=== PATIENT | male | born 1940 | race Caucasian/White ===

== ENCOUNTER 2018-12-20 10:20 | Outpatient (CLI) | payer MEDICARE ==
--- NOTE | 2018-12-20 11:22 | MRI ---
MRI LUMBAR SPINE NONCONTRAST: HISTORY: Lumbar stenosis with neurogenic claudication. Low back pain with tingling and numbness running down b oth legs, times severall years. COMPARISON: 05/06/2013. FINDINGS: Appropriate T1 marrow signal intensity of the lumbar vertebrae. Lumbar spine vertebral body height is maintained. No fracture. No significant STIR hyperintensity to suggest vertebral body edema or ligamentous injury. Appropriate signal intensity of the paraspinal muscles. Interval enlargement of a 4.8 cm exophytic T2 hyperintensity emanating from the medial right renal co rtex which may represent a cyst. Conus medullaris terminates at the inferior aspect of L1. Spondylolisthesis: L1-L2: 2.8 mm retrolisthesis. L2-L3: 3.7 mm of retrolisthesis. L4-L5: ___ mm of retrolisthesis. L5-S1: 6.2 mm of anterolisthesis. There does appear to be associated bilateral spondylolysis at L5. T12-L1:Mild loss of disc space height. No significant central canal stenosis. Mild bilateral foramina l narrowing due to disc material. L1-L2:Severe loss of disc space height. Broad-based disc-osteophyte complex, ligament flavum thickeni ng and facet hypertrophy result in moderate to severe central canal stenosis. Severe bilateral neural foraminal narrowing. L2-L3:Desiccation with severe loss of disc space height. Broad-based disc bulge, ligament flavum thic kening and facet hypertrophy result in moderate central canal stenosis. Moderate to severe bilateral neural foraminal narrowing. L3-L4:Desiccation with moderate to severe loss of disc space height. No obvious disc bulge, ligamentu m flavum thickening (left greater than right) result in moderate central canal stenosis. Narrowing of the left subarticular zone with obscuration traversing left L4 nerve root. Small amount of fluid i n the right facet joint. There is significant left facet hypertrophy. Moderate right foraminal narrowing. Moderate to severe left neural foraminal narrowing. L4-L5:Desiccation with severe loss of disc space height. Broad-based disc bulge, ligament flavum thic kening and facet hypertrophy result in moderate to severe central canal stenosis. Severe bilateral neural foraminal narrowing. L5-S1:Desiccation with moderate loss of disc space height. Broad-based disc bulge without significant stenosis of the thecal sac. Moderate to severe right neural foraminal narrowing. Mild left foraminal narrowing. IMPRESSION: Multilevel degenerative changes lumbar spine as detailed above. Transcribed Date/Time: 12/20/2018 12:12 PM
== END 2018-12-20 10:21 | disposition home or self-care (01) ==
LOC: MRI 10:20
PROVIDERS: ATTEND Anesthesiology Pain Medicine
DX: M48.062 Spinal stenosis, lumbar region with neurogenic claudication (principal); M47.816 Spondylosis without myelopathy or radiculopathy, lumbar region
CPT/HCPCS: 72148

== ENCOUNTER → 2019-04-08 | Day surgery (SDC) | payer MEDICARE ==
[2019-04-07 09:24] VITALS: BMI 36.1
[~2019-04-08] MED LIST: Fentanyl 100 MCG/2 ML VIAL ONE; Heparin 10,000 UNITS/1 ML VIAL ONE; Lidocaine 1% (PF) 30 ML VIAL ONE; Midazolam HCl 2 mg/2 ml Vial ONE; Nitroglycerin 100MG/250ML BOT 250 ML ONE; Verapamil 5 MG/2 ML VIAL ONE
[2019-04-08 08:49] LABS: ALT (SGPT) 10 U/L (8-55); AST (SGOT) 11 U/L (5-34); Albumin 3.9 g/dL (3.4-4.8); Alkaline Phosphatase 66 U/L (40-110); Anion Gap 15 mmol/L (10-20); BUN (Urea Nitrogen) 26 mg/dL (8.4-25.7); Bilirubin, Total 0.6 mg/dL (0.2-1.2); Calc. Creatinine Clearance 47 mL/min (70-130); Calcium 9.4 mg/dL (7.8-10.44); Carbon Dioxide 23 mmol/L (23-31); Chloride 107 mmol/L (98-107); Estimated GFR-MDRD 33; Globulin 2.6 g/dL (2.4-3.5); Glucose 155 mg/dL (83-110); Potassium 3.6 mmol/L (3.5-5.1); Protein, Total 6.5 g/dL (5.8-8.1); Sodium 141 mmol/L (136-145)
--- NOTE | 2019-04-11 21:55 | CON ---
DATE OF CONSULTATION: HISTORY OF PRESENT ILLNESS: This is a 78-year-old gentleman, who is being evaluated for dyspnea on exertion. The patient actually is not that active and states that his recliner will miss him greatly while he is hospitalized for his surgery. He was evaluated by Dr. Coello and was found to have an ejection fraction of 35% to 40% with a stress test showing apical scar with large david-infarct ischemia and apical hypokinesis. Cardiovascular risk factors include diabetes mellitus, dyslipidemia, hypertension, and a remote smoking history. PAST MEDICAL HISTORY: Otherwise includes abdominal wall hernia, arthritis, hearing loss, and dyslipidemia. PAST SURGICAL HISTORY: Includes an appendectomy, hernia repair, left knee replacement, and right knee partial replacement. ALLERGIES: NONE KNOWN. MEDICATIONS: Include, 1. Atorvastatin 20. 2. Janumet b.i.d. 3. Etodolac 400 , which I have told him to stop due to elevated creatinine. 4. Zinc 50 mg a day. 5. Aspirin 81 a day. 6. Avodart 0.5 a day. 7. Gabapentin 300 twice a day. 8. Tramadol as needed for pain. 9. Glimepiride 4 mg once a day. 10. Amlodipine 10 mg once a day. 11. Eye drops. PHYSICAL EXAMINATION: GENERAL: He is alert, cooperative gentleman, overweight at height 5 feet 8 inches, weight 238, BMI 36. NECK: No carotid bruits. LUNGS: Clear to auscultation. CARDIAC: Regular rate and rhythm. No murmurs. ABDOMEN: Hernia palpable in the midline with no adjacent scar. EXTREMITIES: He has no peripheral edema, but does have some brownish pigmentation of his lower legs with absent pedal pulse in the feet. Cardiac catheterization shows an occluded right that fills from left-sided collaterals with no apparent target for grafting. The LAD is occluded after the diagonal and then fills from [id number] collaterals. The circumflex consists of a ramus with about a 60% stenosis. Another small high diagonal that is completely occluded and the distal circumflex giving rise to a small distal OM with about 60% stenosis with potential targets being the LAD, ramus, and distal circ. Plan at this time is to stop his Etodolac. Recheck his renal function and laboratory next week for probable CABG. An informed consent has been obtained. Job ID: [id number]
== END ==
LOC: CCL 06:57
PROVIDERS: ATTEND Internal Medicine Cardiovascular Disease
PROC: 4A023N7 Measurement of Cardiac Sampling and Pressure, Left Heart, Percutaneous Approach (ICD-10-PCS; principal; 2019-04-08)
PROC: B2111ZZ Fluoroscopy of Multiple Coronary Arteries using Low Osmolar Contrast (ICD-10-PCS; 2019-04-08)
DX: I25.10 Atherosclerotic heart disease of native coronary artery without angina pectoris (principal); I25.82 Chronic total occlusion of coronary artery; E78.00 Pure hypercholesterolemia, unspecified; E78.5 Hyperlipidemia, unspecified; I13.0 Hypertensive heart and chronic kidney disease with heart failure and stage 1 through stage 4 chronic kidney disease, or unspecified chronic kidney disease; E11.22 Type 2 diabetes mellitus with diabetic chronic kidney disease; N18.3 Chronic kidney disease, stage 3 (moderate); I50.9 Heart failure, unspecified; M19.90 Unspecified osteoarthritis, unspecified site; Z87.891 Personal history of nicotine dependence; Z79.84 Long term (current) use of oral hypoglycemic drugs; Z79.82 Long term (current) use of aspirin; Z79.899 Other long term (current) drug therapy
CPT/HCPCS: 80053; C1769; J1644; J2001; J2250; J3010

== ENCOUNTER 2019-04-13 11:20 | Inpatient (IN) | payer MEDICARE ==
[2019-04-14] MEDS ORDERED: Albumin 5% 500 ML ONE (06:17)
[2019-04-14] MEDS ORDERED: Heparin 10,000 UNITS/1 ML VIAL 30,000 UNITS in Sodium Chloride 0.9% 1,000 ML FS SCH (06:30)
[2019-04-14] MEDS ORDERED: Midazolam HCl 5 mg/5 ml Vial ONE (07:09)
[2019-04-14] MEDS ORDERED: Fentanyl 250 MCG/5 ML VIAL ONE ×2 (07:09)
[2019-04-14 07:17] LABS: Anion Gap 13 mmol/L (10-20); BUN (Urea Nitrogen) 27 mg/dL (8.4-25.7); Calc. Creatinine Clearance 46 mL/min (70-130); Calcium 10.1 mg/dL (7.8-10.44); Carbon Dioxide 25 mmol/L (23-31); Chloride 103 mmol/L (98-107); Estimated GFR-MDRD 33; Glucose 155 mg/dL (83-110); Potassium 3.8 mmol/L (3.5-5.1); Sodium 137 mmol/L (136-145)
[2019-04-14] MEDS ORDERED: Insulin Regular 300 UNITS/3 ML VIAL ONE (10:11)
[2019-04-14] MEDS ORDERED: Norepinephrine 4 MG/4 ML VIAL ONE (12:03)
[2019-04-14] MEDS ORDERED: Heparin 5,000 UNITS/ML VIAL ONE (12:03)
[2019-04-14] MEDS ORDERED: Cardioplegic Soln 1,000 ML BAG ONE (12:03)
[2019-04-14] MEDS ORDERED: Lidocaine 2% PF 5 ML VIAL ONE (12:03)
[2019-04-14] MEDS ORDERED: Vecuronium 10 MG VIAL ONE (12:03)
[2019-04-14] MEDS ORDERED: Aminocaproic Acid 5 GM/20 ML VIAL ONE (12:03)
[2019-04-14] MEDS ORDERED: Sodium Bicarb 50 MEQ/50 ML Abboject 8.4% SYRINGE ONE (12:03)
[2019-04-14] MEDS ORDERED: DOPamine 400 MG/10 ML VIAL ONE (12:03)
[2019-04-14] MEDS ORDERED: Heparin 30,000 units/30 ml VIAL ONE (12:03)
[2019-04-14] MEDS ORDERED: Thrombin 5000 UNITS/5 ML VIAL ONE (12:03)
[2019-04-14] MEDS ORDERED: Potassium Chloride 60 MEQ/30 ML VIAL ONE (12:03)
[2019-04-14] MEDS ORDERED: Calcium Chloride 1 GM/10 ML Abboject SYRINGE ONE (12:03)
[2019-04-14] MEDS ORDERED: PROPOFOL 200 MG/20 ML VIAL ONE (12:03)
[2019-04-14] MEDS ORDERED: Papaverine 60 MG/2 ML VIAL ONE (12:03)
[2019-04-14] MEDS ORDERED: Rocuronium Bromide 10 MG/ML (10ML VIAL) ONE (12:03)
[2019-04-14] MEDS ORDERED: Magnesium Sulfate 1 GM/2 ML VIAL ONE (12:03)
[2019-04-14] MEDS ORDERED: PHENYLEPHRINE-NS 100 MCG/ML 10 ML SYRINGE ONE (12:03)
[2019-04-14] MEDS ORDERED: Protamine Sulfate 250 MG/25 ML VIAL ONE (12:03)
[2019-04-14] MEDS ORDERED: Lidocaine 1% PF 5 ML VIAL ONE (12:03)
[2019-04-14] MEDS ORDERED: Nitroglycerin 50 MG/250 ML BOT 250 ML IVPB PRN (12:52)
[2019-04-14] MEDS ORDERED: DOPamine 400 MG/D5W 250 ML 250 ML IVPB PRN (12:52)
[2019-04-14] MEDS ORDERED: Post-Op Insulin Drip Protocol IVPB ONE (12:52)
[2019-04-14] MEDS ORDERED: Bisacodyl 5 MG TAB PO PRN (12:52)
[2019-04-14] MEDS ORDERED: Bisacodyl 10 MG SUPP PR PRN (12:52)
[2019-04-14] MEDS ORDERED: hydrALAZINE 20 MG/ML VIAL SLOW IVP PRN (12:52)
[2019-04-14] MEDS ORDERED: Acetaminophen 325 MG TAB PO PRN (12:52)
[2019-04-14] MEDS ORDERED: Mag-Al 1200 mg/1200 mg/30 ML UDCUP PO PRN (12:52)
[2019-04-14] MEDS ORDERED: Guaifenesin DM 100-10/5 ML UDCUP PO PRN (12:52)
[2019-04-14] MEDS ORDERED: Hetastarch 6% 500 ML 500 ML IVPB PRN (12:52)
[2019-04-14] MEDS ORDERED: niCARdipine 25 MG in Sodium Chloride 0.9% 250 ML 240 ML IVPB PRN (12:52)
[2019-04-14] MEDS ORDERED: Norepinephrine 8 MG/0.9% NS 250 ML IVPB PRN (12:52)
[2019-04-14] MEDS ORDERED: Ondansetron PF 4 MG/2 ML Vial IVP PRN (12:52)
[2019-04-14] MEDS ORDERED: Magnesium 2 GM/50 ML 2 GM in Premix Bag 1 BAG IVPB SCH (13:00)
[2019-04-14] MEDS ORDERED: Dextrose 50% Abboject 50 ML SYRINGE SLOW IVP PRN (13:02)
[2019-04-14] MEDS ORDERED: Dextrose 5% in Water 1,000 ML IV PRN (13:02)
[2019-04-14] MEDS ORDERED: HUMULIN R 100 UNITS in Sodium Chloride 0.9% 100 ML IVPB SCH (13:02)
[2019-04-14 13:19] LABS: Hemoglobin 13.2 g/dL (14.0-18.0); Mean Corpuscular HGB CONC 33.8 g/dL (32.0-36.0); Mean Corpuscular Hemoglobin 30.4 pg (27.0-31.0); Platelet Count 225 thou/uL (130-400); RBC Distribution Width 13.1 % (11.5-14.5); Red Blood Cell (RBC) Count 4.35 mill/uL (4.70-6.10); White Blood Cell (WBC) Count 23.7 thou/uL (4.8-10.8)
[2019-04-14 13:22] LABS: Actual Bicarbonate (HCO3a) 17.6 mEq/L (22-28); Base Excess (BEa) -8.9 mEq/L (-2.0 to +3.0); CO2 Tension 40.3 mmHg (35.0-45.0); Calcium, Ionized 1.17 mmol/L (1.12-1.30); Hemoglobin (Hb) 13.5 g/dL (14.0-18.0); O2 Tension (PaO2) 75.1 mmHg (> 70.0); Potassium - ABG Lab 3.96 mmol/L (3.70-5.30); pH, Arterial 7.26 (7.35-7.45)
[2019-04-14 13:24] LABS: ALV-art Gradient 302.325 (0-20); Puncture Site LINE
[2019-04-14 13:27] LABS: PTT 30.5 SEC (22.9-36.1)
[2019-04-14] MEDS: Fentanyl 100 MCG/2 ML VIAL SLOW IVP PRN ×4 (13:27→22:37)
[2019-04-14 13:28] LABS: INR-International Normal Ratio 1.2; Prothrombin Time 14.9 SEC (12.0-14.7)
[2019-04-14] MEDS: CEFAZOLIN 2 GM in Premix Bag 1 BAG IVPB SCH ×2 (13:33→21:09)
[2019-04-14] MEDS: Lactated Ringer's 1,000 ML IV SCH ×2 (13:33→23:27)
[2019-04-14 13:36] LABS: Band 9 % (5-11); Lymphocytes 7 % (21-51); MDiff Complete? YES; Monocytes 8 % (0-10); Myelocyte 2 % (0-0); Neutrophil 74 % (42-75); Ovalocytes SLIGHT = 2-5 cells (100X) (0-1/hpf); Platelet Morphology Comment Appears Adequate; Polychromasia SLIGHT = 2-3 cells (100X) (0-2/hpf)
--- NOTE | 2019-04-14 13:43 | RAD ---
Exam: Chest one view portable: HISTORY: Postop open heart FINDINGS: Endotracheal tube and right subclavian catheters are in place. Chest tubes are in place. Probable sharmaine y tiny left-sided pneumothorax or pneumomediastinum or pneumopericardium. Patchy parenchymal changes in both lung bases. Overall poor inspiratory effort. IMPRESSION: Patchy bibasilar parenchymal changes evidence for subsegmental atelectasis. Bilateral vascular congestion. Probable very tiny amount of left-sided pleural air or pneumomediastinum or pneumopericardium adjacen t to the left heart border region.
[2019-04-14 13:44] VITALS: BMI 37.8
[2019-04-14 13:55] LABS: Anion Gap 14 mmol/L (10-20); BUN (Urea Nitrogen) 27 mg/dL (8.4-25.7); Calc. Creatinine Clearance 48 mL/min (70-130); Calcium 8.4 mg/dL (7.8-10.44); Carbon Dioxide 22 mmol/L (23-31); Chloride 107 mmol/L (98-107); Estimated GFR-MDRD 33; Glucose 198 mg/dL (83-110); Sodium 139 mmol/L (136-145)
[2019-04-14] MEDS: Potassium Chloride 10 MEQ in Premix Bag 1 BAG IVPB PRN (14:50)
--- NOTE | 2019-04-14 15:01 | OP ---
DATE OF PROCEDURE: 04/14/2019 PREOPERATIVE DIAGNOSES: 1. Coronary artery disease. 2. Left ventricular hypertrophy. PROCEDURE PERFORMED: Coronary artery bypass graft x4: Left internal mammary artery good quality to a good quality left anterior descending; saphenous vein good quality to a 2 mm ramus; a 1.5 to 2 mm right coronary artery distal to the PDA; saphenous vein to a 1.5 mm diagonal. The distal circumflex was too small where it could be reached to graft. Due to severe left ventricular hypertrophy , the limitation of the lateral wall was marginal. DESCRIPTION OF PROCEDURE: After adequate anesthesia had been obtained, Dr. Kramer originally did an endovascular vein harvest on the left greater saphenous vein; however, this was not a very good quality vein after being harvested and he then did an open harvest of the right greater saphenous vein. Simultaneously, I performed a median sternotomy, harvesting the left internal mammary artery. After the leg veins had been harvested, the patient was heparinized. The mammary divided distally and passed posterior to a small remnant of thymus gland. Aorta and right atrium were cannulated and cardiopulmonary bypass begun. The aorta was cross clamped, and after a liter of cold blood cardioplegia through the aortic root, the distal anastomosis was completed. Cross-clamp was removed and the partial occluding clamp placed in the ramus and right vein grafts were placed on the aortic root, the partial occluding clamp removed, and the saphenous vein from the diagonal anastomosed to the side of the ramus vein graft about 2 cm from the aortic root. The patient was then weaned from cardiopulmonary bypass. Cannula was removed and protamine given systemically. The vein pledgeted 4-0 Prolene was used to secure the aortic cannulation site. Following completion of this, mediastinal and left pleural drains were placed and the sternum was then reapproximated with #7 interrupted wire using vancomycin paste on the sternal edges, platelet-rich blood, and platelet-poor plasma in this bone and subcutaneous tissue. The patient's subcutaneous tissue and skin were then closed in layers and he is to be taken to the ICU in guarded condition. Job ID: [id number]
[2019-04-14 17:40] LABS: Actual Bicarbonate (HCO3a) 19.5 mEq/L (22-28); Base Excess (BEa) -5.8 mEq/L (-2.0 to +3.0); CO2 Tension 37.7 mmHg (35.0-45.0); Calcium, Ionized 1.17 mmol/L (1.12-1.30); Carboxyhemoglobin (COHb) 1.2 gm% (0.0-3.0); Hemoglobin (Hb) 13.4 g/dL (14.0-18.0); O2 Tension (PaO2) 61.8 mmHg (> 70.0); Potassium - ABG Lab 3.92 mmol/L (3.70-5.30); pH, Arterial 7.33 (7.35-7.45)
[2019-04-14 17:42] LABS: Puncture Site LINE
[2019-04-14 17:43] LABS: ALV-art Gradient 104.975 (0-20)
[2019-04-14] MEDS ORDERED: Sodium Bicarb 50 MEQ/50 ML VIAL ONE (17:47)
[2019-04-14] MEDS ORDERED: Sodium Bicarb 50 MEQ/50 ML VIAL IV SCH (18:00)
--- NOTE | 2019-04-14 18:12 | CON ---
DATE OF CONSULTATION: 04/14/2019 REASON FOR CONSULTATION: Status post CABG. HISTORY OF PRESENT ILLNESS: Mr. Schwarz is a pleasant 78-year-old white gentleman, very well known to myself, who comes to the hospital for a planned CABG. He had this performed earlier today by Dr. Cia. He had coronary artery bypass grafting x4 with a BAGLEY to a good quality LAD, a saphenous vein graft to a good quality 2 mm ramus, a vein graft to a 2 mm right PDA, and a vein graft to a 1.5 mm diagonal. The circumflex was apparently too small and it could not be reached with the graft. On my evaluation, he is still sedated and intubated. I saw him earlier today, just as soon as he came out of the OR. He is still needing pressor support, but minimal. Hopefully, this will get weaned off once anesthesia wears off. PAST MEDICAL HISTORY: 1. Coronary artery disease, recently diagnosed with an abnormal stress and then eventually heart catheterization showing multivessel disease. 2. Type 2 diabetes. 3. Hypertension. 4. Hyperlipidemia. 5. Hearing loss. 6. Osteoarthritis. 7. Abdominal hernia. PAST SURGICAL HISTORY: 1. Colonoscopy. 2. Appendectomy. 3. Left knee replacement. 4. Hernia repair. 5. Right knee partial replacement. 6. CABG x4 as above. FAMILY HISTORY: Noncontributory. REVIEW OF SYSTEMS: Unobtainable as the patient is sedated and intubated. OUTPATIENT MEDICATIONS: 1. Atorvastatin 20 mg at bedtime. 2. Janumet mg twice a day. 3. Etodolac. 4. Zinc. 5. Aspirin 81 a day. 6. Avodart 0.5 mg daily. 7. Gabapentin 300 mg a day. 8. Tramadol p.r.n. 9. Levaquin. 10. Xyzal Allergy once a day. 11. Prevagen 10 mg. 12. Zolpidem p.r.n. 13. Glimepiride 4 mg daily. 14. Amlodipine 10 mg a day. 15. Latanoprost ophthalmic solution. ALLERGIES: NO KNOWN DRUG ALLERGIES. SOCIAL HISTORY: No alcohol, tobacco, or drugs. PHYSICAL EXAMINATION: VITAL SIGNS: Temperature 98.4, pulse 68, respiratory rate 18, saturation 98% on 40% FiO2, and blood pressure 126/61. GENERAL: Sedated and intubated. NECK: Supple. LUNGS: Have rhonchi anteriorly. CARDIOVASCULAR: S1 and S2. 3-component rub. ABDOMEN: Soft. Positive bowel sounds. EXTREMITIES: Trace edema. SKIN: Warm and dry. LABORATORY DATA: Laboratory work was reviewed. White count of 23 postoperatively, hemoglobin 13, hematocrit 39, and platelet count of 225. Coags were unremarkable. ABG was reviewed. Chemistries were reviewed. Creatinine 1.98, this is close to his baseline; yesterday was 1.99 before surgery; and 1.96 on the . ASSESSMENT: 1. Multivessel coronary artery disease. 2. Status post coronary artery bypass grafting x4. 3. Hypertension. 4. Hyperlipidemia. PLAN: 1. Continue supportive care for now. 2. Aspirin and statin for life. 3. We will start beta manuel and KIMO inhibitor once blood pressure allows. Thank you for letting us to participate in the care of your patient. We will follow. TIME SPENT: A 30 minutes of critical care time. Job ID: [id number]
[2019-04-14 19:33] LABS: Hemoglobin 13.2 g/dL (14.0-18.0)
[2019-04-14] MEDS: Atorvastatin Calcium 20 MG TAB PO SCH (20:16)
[2019-04-14] MEDS ORDERED: Famotidine/PF 20 mg/2ml Vial SLOW IVP SCH (21:00)
[2019-04-14] MEDS: Latanoprost 0.005% Ophth Soln 2.5 ml Bottle EA EYE SCH (22:40)
[2019-04-15] MEDS: Fentanyl 100 MCG/2 ML VIAL SLOW IVP PRN ×4 (02:11→19:43)
[2019-04-15 04:55] LABS: #Lymphocytes 0.5 thou/uL (1.20-3.40); #Monocytes 1.6 thou/uL (0.11-0.59); #Neutrophils 13.9 thou/uL (1.40-6.50); %Basophils 0.1 % (0.0-1.0); %Eosinophils 0.1 % (0.0-10.0); %Lymphocytes 3.3 % (21.0-51.0); %Monocytes 10.2 % (0.0-10.0); %Neutrophils 86.4 % (42.0-75.0); Mean Corpuscular HGB CONC 31.9 g/dL (32.0-36.0); Mean Corpuscular Hemoglobin 29.1 pg (27.0-31.0); Mean Corpuscular Volume 91.2 fL (78.0-98.0); Mean Platelet Volume 8.9 fL (7.4-10.4); Platelet Count 211 thou/uL (130-400); RBC Distribution Width 13.4 % (11.5-14.5); Red Blood Cell (RBC) Count 4.12 mill/uL (4.70-6.10); White Blood Cell (WBC) Count 16.1 thou/uL (4.8-10.8)
[2019-04-15] MEDS: CEFAZOLIN 2 GM in Premix Bag 1 BAG IVPB SCH (05:08)
[2019-04-15 05:13] LABS: Anion Gap 17 mmol/L (10-20); BUN (Urea Nitrogen) 26 mg/dL (8.4-25.7); Calc. Creatinine Clearance 50 mL/min (70-130); Calcium 8.5 mg/dL (7.8-10.44); Carbon Dioxide 19 mmol/L (23-31); Chloride 106 mmol/L (98-107); Estimated GFR-MDRD 34; Glucose 172 mg/dL (83-110); Potassium 4.2 mmol/L (3.5-5.1); Sodium 138 mmol/L (136-145)
[2019-04-15] MEDS: Aspirin 325 MG TAB PO SCH (07:53)
[2019-04-15] MEDS: Carvedilol 3.125 MG TAB PO SCH ×2 (07:53→16:23)
--- NOTE | 2019-04-15 07:53 | RAD ---
Chest one view HISTORY: Heart surgery. Follow-up. COMPARISON: 04/14/2019. FINDINGS: Cardiac silhouette is magnified and upper limits of normal in size. Pulmonary vasculature a re less engorged than on the prior study. Atelectasis at the lung bases and pleural fluid are less pronounced. Improved aeration of each lower lobe. Mediastinum is midline with postoperative changes. Endotracheal catheter no longer visible. Right sub clavian central venous catheter and left thoracostomy tube remain in place. Thin rim of gas remains along the lateral margin of the cardiac apex.. bus driver/monitor leads overlie the chest. IMPRESSION: Interval extubation. Improved aeration of the lower lobes. Minimal residual pneumomediastinum, stable.
[2019-04-15] MEDS: Lactated Ringer's 1,000 ML IV SCH (07:54)
[2019-04-15] MEDS: Dutasteride 0.5 MG CAP PO SCH (08:04)
[2019-04-15] MEDS: HYDROcodone/Acetaminophen 5/325 mg Tablet PO PRN ×3 (08:04→19:30)
--- NOTE | 2019-04-15 08:47 | PRG ---
DATE OF SERVICE: 04/15/2019 HISTORY OF PRESENT ILLNESS: This is a 78-year-old gentleman, status post CABG. ICU consultation post CABG. He denies any pain or discomfort. He is extubated earlier yesterday evening. PAST MEDICAL HISTORY: Pertinent otherwise for diabetes, hypertension, chronic pain. PREVIOUS SURGERIES: Appendix, hernia, left knee, right knee. CHRONIC MEDICATIONS: From home includes; 1. Aspirin. 2. Norvasc 10. 3. Xyzal 5. 4. Eyedrops for glaucoma. 5. Glimepiride 4 mg twice a day. 6. Avodart 0.5. 7. Calcium. 8. Atorvastatin 20. 9. Janumet one tablet twice a day. 10. Ambien. 11. Tramadol. 12. Gabapentin 300 three times a day. ALLERGIES: NONE. SOCIAL HISTORY: No alcohol abuse. No tobacco abuse. FAMILY HISTORY: Unremarkable. REVIEW OF SYSTEMS: Otherwise, 10 point negative. PHYSICAL EXAMINATION: GENERAL: ICU post CABG, awake, alert, and responsive. VITAL SIGNS: Pulse 103, saturations are 90%, respiratory rate 18, blood pressure 150/64. CHEST: Decreased breath sounds. No wheezing. CARDIAC: Normal S1, S2. No gallops. ABDOMEN: No masses. IMAGING: Chest x-ray is clear. LABORATORY DATA: Creatinine 1.91, glucose 150. White count 16,000. IMPRESSION: CABG, diabetes, morbid obesity, azotemia, hypertension. PLAN: Continue supportive care. Ordering baseline thyroid function. Continue aggressive PT. We will follow while in the ICU. Consultation note, 70 minutes, 50% direct patient care. Job ID: [id number]
[2019-04-15] MEDS ORDERED: Insulin Glargine 14 UNITS in Pre-Filled Syringe 1 EACH SC SCH (12:45)
--- NOTE | 2019-04-15 19:51 | PDOC.CPN ---
- Subjective Date: 04/15/19 Time: 19:50 Interval history: He is now extubated. Chest soreness, no other issues. - Review of Systems General: denies: fever/chills, weight/appetite/sleep changes, night sweats, fatigue Respiratory: denies: cough, congestion, shortness of breath, exercise intolerance Cardiovascular: reports: edema. denies: chest pain, palpitation, paroxysmal nocturnal dyspnea, orthopnea Gastrointestinal: denies: nausea, vomiting, diarrhea, constipation, abd pain, GI bleeding Musculoskeletal: denies: pain, tenderness, stiffness, swelling, arthritis/ arthralgias Neurological: denies: numbness, syncope, seizure, weakness - Objective Allergies/Adverse Reactions: Allergies Allergy/AdvReac Type Severity Reaction Status Date / Time No Known Allergies Allergy Verified 04/13/19 09:44 Visit Medications: Current Medications Acetaminophen (Tylenol) 650 mg PO Q6H PRN PRN Reason: Headache/Fever Or Mild Pain Hydrocodone Bitart/Acetaminophen ([place] 5/325) 1 tab PO Q4H PRN PRN Reason: Moderate Pain (4-6) Hydrocodone Bitart/Acetaminophen (Bend 5/325) 2 tab PO Q4H PRN PRN Reason: Severe Pain (7-10) Last Admin: 04/15/19 19:30 Dose: 2 tab Al Hydroxide/Mg Hydroxide (Maalox) 30 ml PO Q4H PRN PRN Reason: Indigestion Albuterol/Ipratropium (Duoneb) 3 ml NEB [id number] PRN PRN Reason: SHORTNESS OF BREATH Aspirin (Aspirin) 325 mg PO DAILY [facility] Last Admin: 04/15/19 07:53 Dose: 325 mg Atorvastatin Calcium (Lipitor) 20 mg PO [facility] Last Admin: 04/14/19 20:16 Dose: 20 mg Bisacodyl (Dulcolax) 10 mg PO Q12H PRN PRN Reason: Constipation Bisacodyl (Dulcolax) 10 mg [place] Q12H PRN PRN Reason: Constipation Carvedilol (Coreg) 3.125 mg PO BID-[facility] Last Admin: 04/15/19 16:23 Dose: 3.125 mg Dextrose/Water (Dextrose 50%) 25 gm SLOW IVP PRN PRN PRN Reason: PER HYPOGLYCEMIC PROTOCOL Dutasteride (Avodart) 0.5 mg PO DAILY [facility] Last Admin: 04/15/19 08:04 Dose: 0.5 mg Famotidine (Pepcid) 20 mg SLOW IVP QPM [place] Fentanyl (Sublimaze) 25 mcg SLOW IVP Q2H PRN PRN Reason: Moderate Pain (4-6) Stop: 04/16/19 12:46 Last Admin: 04/15/19 19:43 Dose: 25 mcg Fentanyl (Sublimaze) 50 mcg SLOW IVP Q2H PRN PRN Reason: Severe Pain (7-10) Stop: 04/16/19 12:46 Last Admin: 04/15/19 07:42 Dose: 50 mcg Glucagon (Glucagon) 1 mg SC PRN PRN PRN Reason: PER HYPOGLYCEMIC PROTOCOL Guaifenesin/Dextromethorphan (Robitussin Dm) 15 ml PO Q4H PRN PRN Reason: Cough Hydralazine HCl (Apresoline) 10 mg SLOW IVP Q6H PRN PRN Reason: To Maintain SBP< 140mmHG Last Admin: 04/14/19 21:21 Dose: 10 mg Dopamine HCl/Dextrose (Dopamine 400 Mg/D5w 250 Ml) 250 mls @ 0 mls/hr IVPB PRN PRN; Protocol PRN Reason: To maintain SBP > 90 mmHG Norepinephrine Bitartrate (Levophed) 250 mls @ 0 mls/hr IVPB PRN PRN; Protocol PRN Reason: To maintain SBP > 90 mmHG Nicardipine HCl 25 mg/ Sodium (Chloride) 250 mls @ 0 mls/hr IVPB INF PRN; Protocol PRN Reason: To Maintain SBP< 140mmHG Nitroglycerin/Dextrose (Nitroglycerin 50 Mg/250 Ml Bot) 250 mls @ 0 mls/hr IVPB PRN PRN; Protocol PRN Reason: To Maintain SBP< 140mmHG Last Admin: 04/14/19 23:17 Dose: 250 mls Insulin Human Regular 100 (units/ Sodium Chloride) 101 mls @ 0 mls/hr IVPB INF PATRIA; Protocol Last Admin: 04/14/19 23:24 Dose: 101 mls Dextrose/Water (D5w) 1,000 mls @ 0 mls/hr IV INF PRN PRN Reason: PRN HYPOGLYCEMIC PROTOCOL Potassium Chloride 10 meq/ (Device) 100 mls @ 100 mls/hr IVPB PRN PRN PRN Reason: K LEVEL </= 4.0 Last Admin: 04/14/19 14:50 Dose: 100 mls Lactated Ringer's (Lactated Ringer's) 1,000 mls @ 50 mls/hr IV .Q20H [facility] Last Admin: 04/15/19 07:54 Dose: Not Given Insulin Human Regular (Humulin R) 0 units SC Q4H PRN; Protocol PRN Reason: POST OP SLIDING SCALE Latanoprost (Xalatan 0.005% Ophth Soln) 1 drop EA EYE HS [facility] Last Admin: 04/14/19 22:40 Dose: Not Given Ondansetron HCl (Zofran) 4 mg IVP Q6H PRN PRN Reason: Nausea/Vomiting Last Admin: 04/14/19 21:39 Dose: 4 mg Vital Signs & Weight: Vital Signs Temp Pulse Ox 04/15/19 16:00 97.8 F 04/15/19 12:00 99.2 F 04/15/19 08:00 99.1 F 96 Weight 234 lb 5.622 oz - Physical Exam General: alert & oriented x3 HEENT: mucus membranes moist Neck: supple neck Cardiac: regular rate and rhythm Lungs: clear to auscultation Neuro: grossly intact Abdomen: active bowel sounds Extremities: 1+ LE edema Skin: clear Musculoskeletal: no pain - Labs Result Diagrams: 04/15/19 04:10 04/15/19 04:10 - Telemetry Sinus rhythms and dysrhythmias: sinus rhythm - Assessment/Plan Assessment/Plan: 1. Multivessel CAD. 2. S/P CABG. 3. Type 2 DM 4. HTN 5. HLP PLAN: - Aspirin and statin for life - ON BB - ACEI if BP allows in next few days. - PT once tolerated.
[2019-04-15] MEDS ORDERED: Famotidine/PF 20 mg/2ml Vial SLOW IVP SCH (21:00)
[2019-04-15] MEDS: Atorvastatin Calcium 20 MG TAB PO SCH (21:49)
[2019-04-15] MEDS: Insulin Regular 300 UNITS/3 ML VIAL SC PRN (21:49)
[2019-04-15] MEDS: Latanoprost 0.005% Ophth Soln 2.5 ml Bottle EA EYE SCH (21:49)
[2019-04-16] MEDS: HYDROcodone/Acetaminophen 5/325 mg Tablet PO PRN ×4 (00:33→17:32)
[2019-04-16] MEDS: Lactated Ringer's 1,000 ML IV SCH (01:14)
[2019-04-16] MEDS: Fentanyl 100 MCG/2 ML VIAL SLOW IVP PRN (03:16)
[2019-04-16 03:57] LABS: #Monocytes 2.1 thou/uL (0.11-0.59); #Neutrophils 12.8 thou/uL (1.40-6.50); %Basophils 0.2 % (0.0-1.0); %Eosinophils 0.2 % (0.0-10.0); %Lymphocytes 6.5 % (21.0-51.0); %Neutrophils 80.1 % (42.0-75.0); Hemoglobin 11.8 g/dL (14.0-18.0); Mean Corpuscular HGB CONC 33.2 g/dL (32.0-36.0); Mean Corpuscular Hemoglobin 30.5 pg (27.0-31.0); Mean Corpuscular Volume 91.8 fL (78.0-98.0); Mean Platelet Volume 8.6 fL (7.4-10.4); Platelet Count 199 thou/uL (130-400); RBC Distribution Width 13.4 % (11.5-14.5); Red Blood Cell (RBC) Count 3.87 mill/uL (4.70-6.10)
[2019-04-16 04:15] LABS: Anion Gap 13 mmol/L (10-20); BUN (Urea Nitrogen) 22 mg/dL (8.4-25.7); Calc. Creatinine Clearance 54 mL/min (70-130); Calcium 9.1 mg/dL (7.8-10.44); Carbon Dioxide 26 mmol/L (23-31); Chloride 105 mmol/L (98-107); Estimated GFR-MDRD 40; Glucose 147 mg/dL (83-110); Potassium 3.8 mmol/L (3.5-5.1); Sodium 140 mmol/L (136-145)
[2019-04-16] MEDS: Insulin Regular 300 UNITS/3 ML VIAL SC PRN ×4 (06:04→22:07)
--- NOTE | 2019-04-16 07:43 | RAD ---
EXAM: Portable chest PROVIDED CLINICAL HISTORY: Post open heart COMPARISON: 04/15/2019 FINDINGS: Significant interval change with respect to the prior examination is not apparent. IMPRESSION: As above.
[2019-04-16] MEDS: Dutasteride 0.5 MG CAP PO SCH (08:16)
[2019-04-16] MEDS: Aspirin 325 MG TAB PO SCH (08:16)
[2019-04-16] MEDS: Carvedilol 3.125 MG TAB PO SCH (08:16)
--- NOTE | 2019-04-16 08:41 | PRG ---
DATE OF SERVICE: 04/16/2019 SUBJECTIVE: A 78-year-old gentleman, status post CABG. This morning, he is sitting on the side of the bedside. OBJECTIVE: VITAL SIGNS: Temperature 98, pulse 100, respirations 20, blood pressure 120/85. GENERAL: Denies any pain or discomfort or shortness of breath. CHEST: No wheezing or crackles. CARDIAC: Normal S1 and S2. No gallops. ABDOMEN: No masses. LABORATORY DATA: White count 16,000. Creatinine 1.6. His chest x-ray taken today shows postop changes, bibasilar atelectatic changes. PLAN: Continue aggressive PT. Supportive Care. We will follow. Job ID: [id number]
[2019-04-16] MEDS: Potassium Chloride 10 MEQ in Premix Bag 1 BAG IVPB PRN (09:12)
[2019-04-16] MEDS: Amiodarone 450 MG in Dextrose 5% in Water 250 ML IVPB SCH ×2 (09:51→18:23)
[2019-04-16] MEDS ORDERED: Zolpidem Tartrate 5 MG TAB PO PRN (15:37)
[2019-04-16] MEDS ORDERED: Nitroglycerin 0.4 MG TAB (25 Tab Bottle) SL PRN (15:37)
[2019-04-16] MEDS ORDERED: Mag-Al 1200 mg/1200 mg/30 ML UDCUP PO PRN (15:37)
[2019-04-16] MEDS ORDERED: Artificial Tears 18 DROP/0.9 ML EA EYE PRN (15:37)
[2019-04-16] MEDS ORDERED: Dextrose 5% in Water 1,000 ML IV PRN (15:37)
[2019-04-16] MEDS ORDERED: Mineral Oil ENEMA PR PRN (15:37)
[2019-04-16] MEDS ORDERED: Bisacodyl 5 MG TAB PO PRN (15:37)
[2019-04-16] MEDS ORDERED: Bisacodyl 10 MG SUPP PR PRN (15:37)
[2019-04-16] MEDS ORDERED: Guaifenesin DM 100-10/5 ML UDCUP PO PRN (15:37)
[2019-04-16] MEDS ORDERED: Dextrose 50% Abboject 50 ML SYRINGE SLOW IVP PRN (15:37)
--- NOTE | 2019-04-16 15:56 | PDOC.CPN ---
- Subjective Date: 04/16/19 Time: 15:55 Interval history: He is doing well. He went in to afib but rate controlled. - Review of Systems General: denies: fever/chills, weight/appetite/sleep changes, night sweats, fatigue Respiratory: denies: cough, congestion, shortness of breath, exercise intolerance Cardiovascular: reports: chest pain. denies: palpitation, edema, paroxysmal nocturnal dyspnea, orthopnea Gastrointestinal: denies: nausea, vomiting, diarrhea, constipation, abd pain, GI bleeding Musculoskeletal: denies: pain, tenderness, stiffness, swelling, arthritis/ arthralgias Neurological: denies: numbness, syncope, seizure, weakness - Objective Allergies/Adverse Reactions: Allergies Allergy/AdvReac Type Severity Reaction Status Date / Time No Known Allergies Allergy Verified 04/13/19 09:44 Visit Medications: Current Medications Hydrocodone Bitart/Acetaminophen ([place] 5/325) 1 tab PO Q4H PRN PRN Reason: Moderate Pain (4-6) Last Admin: 04/16/19 13:35 Dose: 1 tab Hydrocodone Bitart/Acetaminophen ([place] 5/325) 2 tab PO Q4H PRN PRN Reason: Severe Pain (7-10) Last Admin: 04/16/19 06:19 Dose: 2 tab Al Hydroxide/Mg Hydroxide (Maalox) 30 ml PO Q4H PRN PRN Reason: Indigestion Al Hydroxide/Mg Hydroxide (Maalox) 30 ml PO Q4H PRN PRN Reason: Indigestion Artificial Tears (Tears Naturale) 0 drop EA EYE PRN PRN PRN Reason: Dry Eyes Aspirin (Aspirin) 325 mg PO DAILY [facility] Last Admin: 04/16/19 08:16 Dose: 325 mg Aspirin (Ecotrin) 325 mg PO DAILY [facility] Atorvastatin Calcium (Lipitor) 20 mg PO HS [facility] Last Admin: 04/15/19 21:49 Dose: 20 mg Bisacodyl (Dulcolax) 10 mg PO Q12H PRN PRN Reason: Constipation Last Admin: 04/16/19 06:19 Dose: 10 mg Bisacodyl (Dulcolax) 10 mg [place] Q12H PRN PRN Reason: Constipation Bisacodyl (Dulcolax) 10 mg PO Q12H PRN PRN Reason: Constipation Bisacodyl (Dulcolax) 10 mg [place] Q12H PRN PRN Reason: Constipation Carvedilol (Coreg) 6.25 mg PO BID [facility] Dextrose/Water (Dextrose 50%) 25 gm SLOW IVP PRN PRN PRN Reason: PER HYPOGLYCEMIC PROTOCOL Dextrose/Water (Dextrose 50%) 25 gm SLOW IVP PRN PRN PRN Reason: Hypoglycemia Diphenhydramine HCl (Benadryl) 25 mg PO Q6H PRN PRN Reason: Itching & Insomnia or Jose L Steven Dutasteride (Avodart) 0.5 mg PO DAILY [facility] Last Admin: 04/16/19 08:16 Dose: 0.5 mg Furosemide (Lasix) 40 mg PO DAILY [facility] Glucagon (Glucagon) 1 mg SC PRN PRN PRN Reason: PER HYPOGLYCEMIC PROTOCOL Glucagon (Glucagon) 1 mg IM PRN PRN PRN Reason: Hypoglycemia Guaifenesin/Dextromethorphan (Robitussin Dm) 15 ml PO Q4H PRN PRN Reason: Cough Guaifenesin/Dextromethorphan (Robitussin Dm) 15 ml PO Q4H PRN PRN Reason: Cough Dextrose/Water (D5w) 1,000 mls @ 0 mls/hr IV INF PRN PRN Reason: PRN HYPOGLYCEMIC PROTOCOL Amiodarone HCl 450 mg/ (Dextrose/Water) 259 mls @ 0 mls/hr IVPB INF [facility]; Protocol Last Admin: 04/16/19 09:51 Dose: 259 mls Dextrose/Water (D5w) 1,000 mls @ 0 mls/hr IV .Q0M PRN PRN Reason: Hypoglycemia Insulin Human Regular (Humulin R) 0 units SC Q4H PRN; Protocol PRN Reason: POST OP SLIDING SCALE Last Admin: 04/16/19 12:05 Dose: 4 unit Latanoprost (Xalatan 0.005% Ophth Soln) 1 drop EA EYE HS [facility] Last Admin: 04/15/19 21:49 Dose: 1 drop Mineral Oil (Fleet Mineral Oil) 133 ml [place] DAILYPRN PRN PRN Reason: Constipation Nitroglycerin (Nitrostat) 0.4 mg SL Q5MIN PRN PRN Reason: Chest Pain Ondansetron HCl (Zofran) 4 mg IVP Q6H PRN PRN Reason: Nausea/Vomiting Last Admin: 04/14/19 21:39 Dose: 4 mg Potassium Chloride (K-Dur) 20 meq PO QAM-WM APTRIA Sodium Chloride (Flush - Normal Saline) 10 ml IVF Q12HR [place] Zolpidem Tartrate (Ambien) 5 mg PO HSPRN PRN PRN Reason: Insomnia Vital Signs & Weight: Vital Signs Temp Pulse Resp BP Pulse Ox 04/16/19 15:00 98.1 F 70 18 137/85 93 L 04/16/19 12:00 98.3 F 04/16/19 08:00 98.5 F 98 04/16/19 04:00 98.2 F Weight 234 lb 2.095 oz - Physical Exam General: alert & oriented x3 HEENT: mucus membranes moist Neck: supple neck Cardiac: irregularly regular Lungs: clear to auscultation Neuro: grossly intact Abdomen: active bowel sounds Extremities: 1+ LE edema Skin: clear Musculoskeletal: no pain - Labs Result Diagrams: 04/16/19 03:15 04/16/19 03:15 - Telemetry Supraventricular conduction: atrial fibrillation - Assessment/Plan Assessment/Plan: 1. Multivessel CAD. 2. S/P CABG. 3. Type 2 DM 4. HTN 5. HLP 6. Post op afib. PLAN: - Aspirin and statin for life - ON BB - ACEI if BP allows in next few days. - PT once tolerated. - Amiodarone for afib - May transfer to telemetry floor.
[2019-04-16] MEDS: Atorvastatin Calcium 20 MG TAB PO SCH (22:08)
[2019-04-16] MEDS: Carvedilol 6.25 MG TAB PO SCH (22:08)
[2019-04-16] MEDS: Latanoprost 0.005% Ophth Soln 2.5 ml Bottle EA EYE SCH (22:09)
[2019-04-17] MEDS: HYDROcodone/Acetaminophen 5/325 mg Tablet PO PRN ×4 (03:36→19:15)
[2019-04-17 04:34] LABS: #Basophils 0.1 thou/uL (0.0-0.2); #Eosinphils 0.1 thou/uL (0.0-0.7); #Lymphocytes 1.2 thou/uL (1.20-3.40); #Monocytes 2.1 thou/uL (0.11-0.59); #Neutrophils 13.7 thou/uL (1.40-6.50); %Basophils 0.4 % (0.0-1.0); %Eosinophils 0.9 % (0.0-10.0); %Monocytes 12.2 % (0.0-10.0); %Neutrophils 79.5 % (42.0-75.0); Hemoglobin 11.2 g/dL (14.0-18.0); Mean Corpuscular HGB CONC 33.6 g/dL (32.0-36.0); Mean Corpuscular Hemoglobin 30.8 pg (27.0-31.0); Mean Corpuscular Volume 91.5 fL (78.0-98.0); Mean Platelet Volume 8.6 fL (7.4-10.4); Platelet Count 199 thou/uL (130-400); RBC Distribution Width 13.4 % (11.5-14.5); Red Blood Cell (RBC) Count 3.63 mill/uL (4.70-6.10); White Blood Cell (WBC) Count 17.3 thou/uL (4.8-10.8)
[2019-04-17 04:53] LABS: Anion Gap 11 mmol/L (10-20); BUN (Urea Nitrogen) 25 mg/dL (8.4-25.7); Calc. Creatinine Clearance 55 mL/min (70-130); Calcium 9.1 mg/dL (7.8-10.44); Carbon Dioxide 27 mmol/L (23-31); Chloride 103 mmol/L (98-107); Estimated GFR-MDRD 41; Glucose 147 mg/dL (83-110); Potassium 3.7 mmol/L (3.5-5.1); Sodium 137 mmol/L (136-145)
--- NOTE | 2019-04-17 08:50 | RAD ---
PORTABLE CHEST ONE VIEW: 04/17/2019 6:56 a.m. HISTORY: Post CABG. COMPARISON: Exam from the previous day. FINDINGS: Changes of median sternotomy and right sided central line are again seen. The heart size is enlarged. Atelectasis at the lung bases is again seen with small pleural effusions. No pneumothoraces are iden tified. POS: [facility]
[2019-04-17] MEDS: Aspirin 325 mg Enteric Coated Tablet PO SCH (09:06)
[2019-04-17] MEDS: Potassium Chloride 20 MEQ TAB PO SCH (09:06)
[2019-04-17] MEDS: Furosemide 40 MG TAB PO SCH (09:07)
[2019-04-17] MEDS: Carvedilol 6.25 MG TAB PO SCH ×2 (09:07→17:44)
[2019-04-17] MEDS: Dutasteride 0.5 MG CAP PO SCH (09:07)
[2019-04-17] MEDS: Insulin Regular 300 UNITS/3 ML VIAL SC PRN ×3 (09:09→17:45)
[2019-04-17] MEDS: Aspirin 325 MG TAB PO SCH (09:14)
[2019-04-17] MEDS: Amiodarone 450 MG in Dextrose 5% in Water 250 ML IVPB SCH (09:48)
[2019-04-17] MEDS ORDERED: Furosemide 40 MG/4 ML VIAL SLOW IVP SCH (11:00)
[2019-04-17] MEDS ORDERED: Sodium Chloride 0.9% 10 ML ONE (11:26)
--- NOTE | 2019-04-17 12:16 | PRG ---
DATE OF SERVICE: 04/17/2019 SUBJECTIVE: This morning, the patient is having difficulty breathing. OBJECTIVE: VITAL SIGNS: His saturations are 93% on 2 L, temperature 97, blood pressure 150/81, respiratory rate 18. CHEST: Reveals no wheezing, crackles. CARDIAC: Normal S1 and S2. No gallops. ABDOMEN: No masses. LABORATORY DATA: His creatinine 1.63. His white count 17,000. IMAGING STUDIES: Chest x-ray taken today, shows no obvious infiltrates, maybe retrocardiac density. ASSESSMENT AND PLAN: Dyspnea, morbid obesity, sleep apnea, questionable left-sided pneumonia. Empiric antibiotics, neb treatment. New prescription for CPAP is being given to the patient. He probably needs to come to our office for a repeat CPAP titration study. Job ID: [id number]
--- NOTE | 2019-04-17 17:00 | RAD ---
RADIOGRAPH CHEST 2 VIEW: DATE: 04/17/2019 TIME: 5:50 PM HISTORY: 78 year old male status post CABG COMPARISON: 04/17/2019 6:56 AM FINDINGS: There has been no interval change on the frontal view. Diffuse mild interstitial densities, heterogeneous. Cardiomegaly. Sternotomy wires. Right subclavian central line distal tip at lower SVC. No moderate sized or large pleural effusion. No pneumothorax. No new consolidation. IMPRESSION: 1) status post coronary artery bypass graft surgery. 2) diffuse mild interstitial densities: Uncertain whether this represents pulmonary interstitial jessi a or chronic interstitial changes.
--- NOTE | 2019-04-17 17:33 | PDOC.CPN ---
- Subjective Date: 04/17/19 Time: 17:31 Interval history: He is doing better. No BM but passing gas. Working with PT. - Review of Systems General: denies: fever/chills, weight/appetite/sleep changes, night sweats, fatigue Respiratory: denies: cough, congestion, shortness of breath, exercise intolerance Cardiovascular: denies: chest pain, palpitation, edema, paroxysmal nocturnal dyspnea, orthopnea Gastrointestinal: denies: nausea, vomiting, diarrhea, constipation, abd pain, GI bleeding Musculoskeletal: denies: pain, tenderness, stiffness, swelling, arthritis/ arthralgias Neurological: denies: numbness, syncope, seizure, weakness - Objective Allergies/Adverse Reactions: Allergies Allergy/AdvReac Type Severity Reaction Status Date / Time No Known Allergies Allergy Verified 04/13/19 09:44 Visit Medications: Current Medications Hydrocodone Bitart/Acetaminophen ([place] 5/325) 1 tab PO Q4H PRN PRN Reason: Moderate Pain (4-6) Last Admin: 04/17/19 09:08 Dose: 1 tab Hydrocodone Bitart/Acetaminophen ([place] 5/325) 2 tab PO Q4H PRN PRN Reason: Severe Pain (7-10) Last Admin: 04/17/19 14:03 Dose: 2 tab Al Hydroxide/Mg Hydroxide (Maalox) 30 ml PO Q4H PRN PRN Reason: Indigestion Albuterol/Ipratropium (Duoneb) 3 ml NEB [id number] [facility] Last Admin: 04/17/19 14:12 Dose: 3 ml Artificial Tears (Tears Naturale) 0 drop EA EYE PRN PRN PRN Reason: Dry Eyes Aspirin (Ecotrin) 325 mg PO DAILY [facility] Last Admin: 04/17/19 09:06 Dose: 325 mg Atorvastatin Calcium (Lipitor) 20 mg PO HS [facility] Last Admin: 04/16/19 22:08 Dose: 20 mg Bisacodyl (Dulcolax) 10 mg PO Q12H PRN PRN Reason: Constipation Bisacodyl (Dulcolax) 10 mg MT Q12H PRN PRN Reason: Constipation Carvedilol (Coreg) 12.5 mg PO BID-[facility] Dextrose/Water (Dextrose 50%) 25 gm SLOW IVP PRN PRN PRN Reason: Hypoglycemia Diphenhydramine HCl (Benadryl) 25 mg PO Q6H PRN PRN Reason: Itching & Insomnia or Jose L Steven Dutasteride (Avodart) 0.5 mg PO DAILY [facility] Last Admin: 04/17/19 09:07 Dose: 0.5 mg Furosemide (Lasix) 40 mg PO DAILY [facility] Last Admin: 04/17/19 09:07 Dose: 40 mg Glucagon (Glucagon) 1 mg IM PRN PRN PRN Reason: Hypoglycemia Guaifenesin/Dextromethorphan (Robitussin Dm) 15 ml PO Q4H PRN PRN Reason: Cough Amiodarone HCl 450 mg/ (Dextrose/Water) 259 mls @ 0 mls/hr IVPB INF [facility]; Protocol Last Admin: 04/17/19 09:48 Dose: 259 mls Dextrose/Water (D5w) 1,000 mls @ 0 mls/hr IV .Q0M PRN PRN Reason: Hypoglycemia Insulin Human Regular (Humulin R) 0 units SC Q4H PRN; Protocol PRN Reason: POST OP SLIDING SCALE Last Admin: 04/17/19 12:19 Dose: 6 unit Latanoprost (Xalatan 0.005% Oph Soln) 1 drop EA EYE HS [facility] Last Admin: 04/16/19 22:09 Dose: 1 drop Levofloxacin (Levaquin) 500 mg PO 0600 [facility] Stop: 04/23/19 06:01 Mineral Oil (Fleet Mineral Oil) 133 ml MT DAILYPRN PRN PRN Reason: Constipation Nitroglycerin (Nitrostat) 0.4 mg SL Q5MIN PRN PRN Reason: Chest Pain Ondansetron HCl (Zofran) 4 mg IVP Q6H PRN PRN Reason: Nausea/Vomiting Last Admin: 04/14/19 21:39 Dose: 4 mg Potassium Chloride (K-Dur) 20 meq PO QAM-WM [facility] Last Admin: 04/17/19 09:06 Dose: 20 meq Sodium Chloride (Flush - Normal Saline) 10 ml IVF Q12HR [facility] Last Admin: 04/17/19 09:08 Dose: 10 ml Zolpidem Tartrate (Ambien) 5 mg PO HSPRN PRN PRN Reason: Insomnia Last Admin: 04/16/19 22:20 Dose: 5 mg Vital Signs & Weight: Vital Signs Temp Pulse Pulse Pulse Pulse Resp BP 04/17/19 14:12 86 20 04/17/19 12:05 96.9 F L 82 18 04/17/19 09:07 150/81 H 04/17/19 09:05 87 86 75 04/17/19 07:40 97.5 F L 82 20 BP BP BP Pulse Ox Pulse Ox Pulse Ox Pulse Ox 04/17/19 14:12 96 04/17/19 12:05 145/83 H 96 04/17/19 09:07 04/17/19 09:05 150/81 H 148/86 H 100 97 91 L 04/17/19 07:40 135/83 93 L Weight 235 lb 6.4 oz - Physical Exam General: alert & oriented x3 HEENT: normocephaly Neck: supple neck Cardiac: regular rate and rhythm Lungs: normal breath sounds Neuro: cranial nerve 2-12 intact Abdomen: unremarkable Extremities: 1+ LE edema Skin: clear Musculoskeletal: no pain - Labs Result Diagrams: 04/17/19 04:00 04/17/19 04:00 - Telemetry Sinus rhythms and dysrhythmias: sinus rhythm - Assessment/Plan Assessment/Plan: 1. Multivessel CAD. 2. S/P CABG. 3. Type 2 DM 4. HTN 5. HLP 6. Post op afib. PLAN: - Aspirin and statin for life - ON BB - ACEI if BP allows in next few days. - PT once tolerated. - Amiodarone for afib, will switch to PO today. - EKG to monitor QTc tomorrow.
[2019-04-17] MEDS ORDERED: Amiodarone 200 MG TAB PO SCH (21:00)
[2019-04-17] MEDS: diphenhydrAMINE 25 MG CAP PO PRN (21:56)
[2019-04-17] MEDS: Latanoprost 0.005% Ophth Soln 2.5 ml Bottle EA EYE SCH (21:56)
[2019-04-17] MEDS: Amiodarone 200 MG TAB PO SCH (21:56)
[2019-04-17] MEDS: Atorvastatin Calcium 20 MG TAB PO SCH (21:56)
[2019-04-18] MEDS: HYDROcodone/Acetaminophen 5/325 mg Tablet PO PRN ×4 (03:33→22:52)
[2019-04-18 04:35] LABS: #Basophils 0.1 thou/uL (0.0-0.2); #Eosinphils 0.3 thou/uL (0.0-0.7); #Monocytes 1.7 thou/uL (0.11-0.59); #Neutrophils 11.7 thou/uL (1.40-6.50); %Basophils 0.5 % (0.0-1.0); %Eosinophils 2.2 % (0.0-10.0); %Monocytes 11.5 % (0.0-10.0); %Neutrophils 78.8 % (42.0-75.0); Hemoglobin 12.1 g/dL (14.0-18.0); Mean Corpuscular HGB CONC 33.7 g/dL (32.0-36.0); Mean Corpuscular Hemoglobin 30.7 pg (27.0-31.0); Mean Corpuscular Volume 91.2 fL (78.0-98.0); Mean Platelet Volume 8.3 fL (7.4-10.4); Platelet Count 265 thou/uL (130-400); RBC Distribution Width 13.1 % (11.5-14.5); Red Blood Cell (RBC) Count 3.92 mill/uL (4.70-6.10); White Blood Cell (WBC) Count 14.9 thou/uL (4.8-10.8)
[2019-04-18 04:58] LABS: Anion Gap 12 mmol/L (10-20); BUN (Urea Nitrogen) 29 mg/dL (8.4-25.7); Calc. Creatinine Clearance 55 mL/min (70-130); Calcium 9.1 mg/dL (7.8-10.44); Carbon Dioxide 27 mmol/L (23-31); Chloride 102 mmol/L (98-107); Estimated GFR-MDRD 40; Glucose 142 mg/dL (83-110); Potassium 3.7 mmol/L (3.5-5.1); Sodium 137 mmol/L (136-145)
[2019-04-18] MEDS ORDERED: Dextrose 5% in Water 1,000 ML IV PRN (08:37)
[2019-04-18] MEDS ORDERED: Dextrose 50% Abboject 50 ML SYRINGE SLOW IVP PRN (08:37)
[2019-04-18] MEDS ORDERED: HumaLOG 300 UNITS/3 ML VIAL SC PRN (08:37)
--- NOTE | 2019-04-18 09:59 | PRG ---
DATE OF SERVICE: 04/18/2019 SUBJECTIVE: This morning, he is doing better, less short of breath. OBJECTIVE: VITAL SIGNS: Temperature 97, pulse 99, respirations 18, saturations , blood pressure 140/82. CHEST: Decreased breath sounds. No wheezing. CARDIAC: Normal S1 and S2. No gallops. ABDOMEN: Soft. LABORATORY DATA: Creatinine 1.6. IMPRESSION AND PLAN: Status post coronary artery bypass graft, sleep apnea, chronic obstructive pulmonary disease, azotemia. Pulmonary, continue to stay on his CPAP at nighttime. New prescription is given for home use. PT, supportive care. We will follow. Job ID: [id number]
[2019-04-18] MEDS: Potassium Chloride 20 MEQ TAB PO SCH (10:15)
[2019-04-18] MEDS: Carvedilol 6.25 MG TAB PO SCH ×2 (10:15→17:39)
[2019-04-18] MEDS: Dutasteride 0.5 MG CAP PO SCH (10:16)
[2019-04-18] MEDS: Amiodarone 200 MG TAB PO SCH ×2 (10:16→21:18)
[2019-04-18] MEDS: Aspirin 325 mg Enteric Coated Tablet PO SCH (10:16)
[2019-04-18] MEDS: Furosemide 40 MG TAB PO SCH (10:16)
[2019-04-18] MEDS: Alogliptin 25 MG TAB PO SCH (10:16)
--- NOTE | 2019-04-18 15:36 | PDOC.CPN ---
- Subjective Date: 04/18/19 Time: 15:34 Interval history: Doing well. Still no BM but passing gas. Walking with PT. - Review of Systems General: denies: fever/chills, weight/appetite/sleep changes, night sweats, fatigue Respiratory: denies: cough, congestion, shortness of breath, exercise intolerance Cardiovascular: reports: edema. denies: chest pain, palpitation, paroxysmal nocturnal dyspnea, orthopnea Gastrointestinal: denies: nausea, vomiting, diarrhea, constipation, abd pain, GI bleeding Musculoskeletal: denies: pain, tenderness, stiffness, swelling, arthritis/ arthralgias Neurological: denies: numbness, syncope, seizure, weakness - Objective Allergies/Adverse Reactions: Allergies Allergy/AdvReac Type Severity Reaction Status Date / Time No Known Allergies Allergy Verified 04/13/19 09:44 Visit Medications: Current Medications Hydrocodone Bitart/Acetaminophen ([place] 5/325) 1 tab PO Q4H PRN PRN Reason: Moderate Pain (4-6) Last Admin: 04/18/19 14:18 Dose: 1 tab Al Hydroxide/Mg Hydroxide (Maalox) 30 ml PO Q4H PRN PRN Reason: Indigestion Albuterol/Ipratropium (Duoneb) 3 ml NEB [id number] [facility] Last Admin: 04/18/19 13:53 Dose: 3 ml Alogliptin Benzoate (Alogliptin) 25 mg PO DAILY [facility] Last Admin: 04/18/19 10:16 Dose: 25 mg Amiodarone HCl (Cordarone) 400 mg PO BID [facility] Last Admin: 04/18/19 10:16 Dose: 400 mg Aspirin (Ecotrin) 325 mg PO DAILY [facility] Last Admin: 04/18/19 10:16 Dose: 325 mg Atorvastatin Calcium (Lipitor) 20 mg PO HS [facility] Last Admin: 04/17/19 21:56 Dose: 20 mg Bisacodyl (Dulcolax) 10 mg PO Q12H PRN PRN Reason: Constipation Bisacodyl (Dulcolax) 10 mg OR Q12H PRN PRN Reason: Constipation Carvedilol (Coreg) 12.5 mg PO BID-WM [facility] Last Admin: 04/18/19 10:15 Dose: 12.5 mg Dextrose/Water (Dextrose 50%) 25 gm SLOW IVP PRN PRN PRN Reason: Hypoglycemia Diphenhydramine HCl (Benadryl) 25 mg PO Q6H PRN PRN Reason: Itching & Insomnia or Jose L Steven Last Admin: 04/17/19 21:56 Dose: 25 mg Dutasteride (Avodart) 0.5 mg PO DAILY [facility] Last Admin: 04/18/19 10:16 Dose: 0.5 mg Furosemide (Lasix) 40 mg PO DAILY [facility] Last Admin: 04/18/19 10:16 Dose: 40 mg Glimepiride (Amaryl) 4 mg PO [facility] Glucagon (Glucagon) 1 mg IM PRN PRN PRN Reason: Hypoglycemia Guaifenesin/Dextromethorphan (Robitussin Dm) 15 ml PO Q4H PRN PRN Reason: Cough Dextrose/Water (D5w) 1,000 mls @ 0 mls/hr IV .Q0M PRN PRN Reason: Hypoglycemia Insulin Human Lispro (Humalog) 0 units SC .MILD SLIDING SCALE PRN PRN Reason: Mild Correctional Scale Latanoprost (Xalatan 0.005% Oph Soln) 1 drop EA EYE HS [facility] Last Admin: 04/17/19 21:56 Dose: 1 drop Levofloxacin (Levaquin) 500 mg PO 0600 [facility] Stop: 04/23/19 06:01 Last Admin: 04/18/19 06:28 Dose: 500 mg Mineral Oil (Fleet Mineral Oil) 133 ml OR DAILYPRN PRN PRN Reason: Constipation Nitroglycerin (Nitrostat) 0.4 mg SL Q5MIN PRN PRN Reason: Chest Pain Ondansetron HCl (Zofran) 4 mg IVP Q6H PRN PRN Reason: Nausea/Vomiting Last Admin: 04/14/19 21:39 Dose: 4 mg Potassium Chloride (K-Dur) 20 meq PO [facility] Last Admin: 04/18/19 10:15 Dose: 20 meq Sodium Chloride (Flush - Normal Saline) 10 ml IVF Q12HR [facility] Last Admin: 04/18/19 10:17 Dose: 10 ml Vital Signs & Weight: Vital Signs Temp Pulse Pulse Resp BP BP Pulse Ox 04/18/19 14:50 82 132/72 04/18/19 13:53 86 16 04/18/19 12:55 66 18 134/70 94 L 04/18/19 10:35 75 156/97 H 04/18/19 08:30 97.6 F 99 18 152/82 H 94 L 04/18/19 07:28 86 16 Weight 242 lb - Physical Exam General: alert & oriented x3 HEENT: mucus membranes moist Neck: supple neck Cardiac: regular rate and rhythm Lungs: clear to auscultation Neuro: grossly intact Abdomen: active bowel sounds Extremities: 2+ LE edema Skin: clear Musculoskeletal: normal range of motion - Labs Result Diagrams: 04/18/19 04:13 04/18/19 04:13 - Telemetry Sinus rhythms and dysrhythmias: sinus rhythm - Assessment/Plan Assessment/Plan: 1. Multivessel CAD. 2. S/P CABG. 3. Type 2 DM 4. HTN 5. HLP 6. Post op afib. PLAN: - Aspirin and statin for life - ON BB - Will add Lisinopril, will hold off amlodipine unless we need more BP control. - PT once tolerated. - Amiodarone load for post op afib at 400 mg BID for 6 more days then 200 mg daily.
[2019-04-18] MEDS: Atorvastatin Calcium 20 MG TAB PO SCH (21:18)
[2019-04-18] MEDS: Latanoprost 0.005% Ophth Soln 2.5 ml Bottle EA EYE SCH (21:19)
[2019-04-18] MEDS: diphenhydrAMINE 25 MG CAP PO PRN (22:52)
[2019-04-19] MEDS: HYDROcodone/Acetaminophen 5/325 mg Tablet PO PRN ×2 (03:03→09:07)
[2019-04-19] MEDS ORDERED: Glimepiride 4 MG TAB PO SCH (08:00)
[2019-04-19] MEDS ORDERED: metFORMIN 500 MG TAB PO SCH (08:00)
[2019-04-19] MEDS ORDERED: Lisinopril 5 MG TAB PO SCH (09:00)
[2019-04-19] MEDS: Potassium Chloride 20 MEQ TAB PO SCH (09:06)
[2019-04-19] MEDS: Carvedilol 6.25 MG TAB PO SCH (09:06)
[2019-04-19] MEDS: Dutasteride 0.5 MG CAP PO SCH (09:07)
[2019-04-19] MEDS: Alogliptin 25 MG TAB PO SCH (09:07)
[2019-04-19] MEDS: Amiodarone 200 MG TAB PO SCH (09:07)
[2019-04-19] MEDS: Aspirin 325 mg Enteric Coated Tablet PO SCH (09:07)
[2019-04-19] MEDS: Furosemide 40 MG TAB PO SCH (09:08)
--- NOTE | 2019-04-19 09:24 | PRG ---
DATE OF SERVICE: 04/19/2019 SUBJECTIVE: This morning, he is awake, alert, responsive, in no distress. OBJECTIVE: VITAL SIGNS: Temperature 98, pulse 75, respirations 15, saturations are 100% on 2 L, blood pressure 140/83. CHEST: Decreased breath sounds. No wheezing. CARDIAC: Normal S1 and S2. No gallops. ABDOMEN: No masses. ASSESSMENT AND PLAN: Chronic obstructive pulmonary disease, obstructive sleep apnea, coronary artery bypass graft. P.o. antibiotics, neb treatment, supportive care. We will follow. Job ID: [id number]
[2019-04-19 12:05] VITALS: TEMP 97.8
[2019-04-19 12:20] VITALS: BP 143/76
--- NOTE | 2019-04-20 05:17 | DIS ---
DATE OF ADMISSION: 04/14/2019 DATE OF DISCHARGE: 04/19/2019 HISTORY OF PRESENT ILLNESS: The patient was admitted on 04/13 where he underwent coronary artery bypass grafting x4, BAGLEY to an LAD, saphenous vein graft to a ramus, a right coronary artery just distal to the PDA takeoff into a diagonal. The distal circumflex was not able to be grafted partly, because the vessel was too small and partly, because the patient had significant left ventricular hypertrophy that inhibited being able to access this area. The patient also had left atrial appendage ligation. Postoperatively, the patient did well with some transient atrial fibrillation that converted to sinus rhythm. He was ambulating to the bathroom without difficulty, but given his age and his 's age, it was felt that further inpatient rehab would be beneficial and he is to be discharged to rehab today. He will be discharged on amiodarone 400 b.i.d. for 5 days and then 200 a day. He will resume his atorvastatin 20, Avodart 0.5 eyedrops, aspirin 81 daily, Coreg p.o. b.i.d., gabapentin 300 p.o. t.i.d., glimepiride 4 b.i.d., Xyzal 5 mg daily, lisinopril 5 mg daily, metformin/sitagliptin b.i.d., and tramadol as needed for pain. He has been instructed not to continue his amlodipine. His discharge creatinine was about 1.6, which is similar to his admission. Discharge and followup instructions were given. Job ID: [id number]
--- NOTE | 2019-04-21 10:17 | PQF ---
HAILEY WHEELER JAMES M MD [id number] CLINICAL DOCUMENTATION CLARIFICATION FORM: POST DISCHARGE Addendum to original discharge summary date: ____ Late entry note date: __ DATE:04/21/2019 ATTN: PREMA GREENE MD Please exercise your independent, professional judgment in responding to the clarification form. Clinical indicators are provided on the bottom of this form for your review Please check appropriate box(s) to clarify if the following diagnosis has been ruled in or ruled out: Pneumonia [ ] Ruled in diagnosis [ ] Continue to treat [ ] Resolved [ y ] Ruled out diagnosis [ ] Cannot rule out diagnosis [ ] Other diagnosis [ ] Unable to determine In addition, please specify: Present on Admission (POA): [ ] Yes [y ] No [ ] Unable to determine For continuity of documentation, please document condition throughout progress notes and discharge summary. Thank You. CLINICAL INDICATORS - SIGNS / SYMPTOMS / LABS White count 16,000-Documented in PN on 04/15 by Papa Carlos MD His chest X- ray taken today shows postop changes , Bibasilar atelectatic changes -Documented in PN on 04/15 by Papa Carlos MD Questionable left sided pneumonia-Documented in PN on 04/16 by Papa Carlos MD Dyspnea-Documented in PN on 04/16 by Papa Carlos MD RISK FACTORS His chest X- ray taken today shows postop changes , Bibasilar atelectatic changes -Documented in PN on 04/15 by Papa Carlos MD CABG procedure done on 04/13 TREATMENTS Empiric antibiotics , neb treatment. New prescription for CPAP is being given to the patient. He probably needs to come to our office for a repeat CPAP titration study-Documented in PN on 04/16 by Papa Carlos MD SAP Ward Attendant [employer] Win[employer] Viewer (This form is maintained as a part of the permanent medical record) 2014 [email or web address] All Rights Reserved [email or web address] [phone] MTDD
--- NOTE | 2019-04-25 10:34 | PQF ---
HAILEY WHEELER JAMES M MD [id number] CLINICAL DOCUMENTATION CLARIFICATION FORM: POST DISCHARGE Addendum to original discharge summary date: ____ Late entry note date: __ DATE:04/25/2019 ATTN:PREMA CAI MD Please exercise your independent, professional judgment in responding to the clarification form. Clinical indicators are provided on the bottom of this form for your review Please check appropriate box(s): [ y7 ] Atrial fibrillation is a complication of coronary artery bypass surgery [ ] Atrial fibrillation is not a complication of coronary artery bypass surgery [ ] Other diagnosis [ ] Unable to determine CLINICAL INDICATORS - SIGNS / SYMPTOMS / LABS Post op atrial fibrillation-Documented in cardiology progress note on 04/16 by Matias Coello MD Multivessel CAD-Documented in cardiology progress note on 04/16 by Matias Coello MD Coronary artery bypass graft x 4-Documented in Op note on 04/13 by prema Cai MD RISK FACTORS Coronary artery bypass graft x 4-Documented in Op note on 04/13 by prema Cai MD HTN-Documented in cardiology progress note on 04/16 by Matias Coello MD Multivessel CAD-Documented in cardiology progress note on 04/16 by Matias Coello MD TREATMENT: Amiodarone for afib, will switch to PO today-Documented in cardiology progress note on 04/16 by Matias Coello MD Aspirin and statin for life-Documented in cardiology progress note on 04/16 by Matias Coello MD EKG to monitor Qtc tomorrow-Documented in cardiology progress note on 04/16 by Matias Coello MD Amiodarone load for post op afib at 400 mg BID for 6 more days then 20 mg daily- Documented in cardiology progress note on 04/17 by Matias Coello MD (This form is maintained as a part of the permanent medical record) SAP Dexigraph Operator [employer] [id number] [email or web address] , [employer]. All Rights Reserved [email or web address]
== END 2019-04-19 14:40 | DRG 236 ==
LOC: SURG B 04-14 06:20 → CCU 04-14 12:06 → 2NO 04-16 15:10
PROVIDERS: ADMIT Thoracic Surgery (Cardiothoracic Vascular Surgery); ATTEND Thoracic Surgery (Cardiothoracic Vascular Surgery)
PROC: 02100Z8 Bypass Coronary Artery, One Artery from Right Internal Mammary, Open Approach (ICD-10-PCS; principal; 2019-04-14)
PROC: 021209W Bypass Coronary Artery, Three Arteries from Aorta with Autologous Venous Tissue, Open Approach (ICD-10-PCS; 2019-04-14)
PROC: 06BQ4ZZ Excision of Left Saphenous Vein, Percutaneous Endoscopic Approach (ICD-10-PCS; 2019-04-14)
PROC: 5A1221Z Performance of Cardiac Output, Continuous (ICD-10-PCS; 2019-04-14)
DX: I25.10 Atherosclerotic heart disease of native coronary artery without angina pectoris (principal); J98.11 Atelectasis; I97.190 Other postprocedural cardiac functional disturbances following cardiac surgery; I51.7 Cardiomegaly; E11.9 Type 2 diabetes mellitus without complications; I10 Essential (primary) hypertension; E78.5 Hyperlipidemia, unspecified; Z96.653 Presence of artificial knee joint, bilateral; Z90.49 Acquired absence of other specified parts of digestive tract; E66.01 Morbid (severe) obesity due to excess calories; Z68.36 Body mass index [BMI] 36.0-36.9, adult; G47.30 Sleep apnea, unspecified; J44.9 Chronic obstructive pulmonary disease, unspecified; R79.89 Other specified abnormal findings of blood chemistry; Y83.8 Other surgical procedures as the cause of abnormal reaction of the patient, or of later complication, without mention of misadventure at the time of the procedure
CPT/HCPCS: 36415; 36416; 36430; 71045; 71046; 80048; 82805; 84443; 85025; 85610; 85730; 86850; 86900; 86901; 93005; 93010; 93798; 94002; 94150; 94640; J0282; J0360; J0690; J1265; J1642; J1644; J1815; J1940; J2001; J2250; J2405; J2440; J2704; J2720; J3010; J3370; J3475; J3480; J3490; J7070; J7620; P9045; Q0163; S0017; S0028

== ENCOUNTER 2019-12-13 17:30 | Outpatient (CLI) | payer MEDICARE | END 2019-12-13 17:31 | disposition home or self-care (01) | LOC: SLEEPLAB 17:30 | PROVIDERS: ATTEND Family Medicine | DX: G47.33 Obstructive sleep apnea (adult) (pediatric) (principal); R06.83 Snoring; I25.10 Atherosclerotic heart disease of native coronary artery without angina pectoris; I10 Essential (primary) hypertension; E11.9 Type 2 diabetes mellitus without complications; G47.00 Insomnia, unspecified | CPT/HCPCS: 95806 ==

== ENCOUNTER 2020-01-24 19:00 | Outpatient (CLI) | payer MEDICARE | END 2020-01-24 19:01 | disposition home or self-care (01) | LOC: SLEEPLAB 19:00 | PROVIDERS: ATTEND Family Medicine | DX: G47.33 Obstructive sleep apnea (adult) (pediatric) (principal) | CPT/HCPCS: 95811 ==

== ENCOUNTER 2020-05-22 12:54 | Outpatient (CLI) | payer MEDICARE | END 2020-05-22 12:55 | disposition home or self-care (01) | LOC: BICULT 12:54 | PROVIDERS: ATTEND Internal Medicine Nephrology | DX: N18.4 Chronic kidney disease, stage 4 (severe) (principal); N28.1 Cyst of kidney, acquired | CPT/HCPCS: 76770 ==